=== PATIENT | female | born 1970 | race Caucasian/White ===

== ENCOUNTER 2016-06-02 11:52 | Emergency (ER) | payer MEDICAID ==
[2016-06-02 12:23] VITALS: TEMP 98.6
[2016-06-02 13:13] LABS: COLOR YELLOW; LEUKOCYTE ESTERASE,URINE NEGATIVE (NEGATIVE); NITRITE,URINE NEGATIVE (NEGATIVE); PH,URINE 6.5 (5.0-7.5)
[2016-06-02 13:31] LABS: % IMMATURE GRANULYOCYTES 0.3 % (0.0-1.1); ABSOLUTE IMMATURE GRANULOCYTES 0.03 10^3/uL (0.00-0.10); ADD DIFF? NO; ADD MORPH? NO; ADD SCAN? NO; ATYPICAL LYMPHOCYTE FLAG 0 (0-99); FRAGMENT RBC FLAG 0 (0-99); HEMATOCRIT 38.8 % (38.0-47.0); HEMOGLOBIN 13.5 g/dL (12.6-16.3); LEFT SHIFT FLG 0 (0-99); LIPEMIA HEMOLYSIS FLAG 90 (0-99); MEAN CELL HEMOGLOBIN 32.2 pg (27.9-34.1); MEAN CELL HEMOGLOBIN CONCENTR. 34.8 g/dL (32.4-36.7); MEAN CELL VOLUME 92.6 fL (81.5-99.8); MEAN PLATELET VOLUME 10.1 fL (8.7-11.7); PLATELET CLUMPS FLAG 0 (0-99); PLATELET COUNT 183 10^3/uL (150-400); RED BLOOD CELL COUNT 4.19 10^6/uL (4.18-5.33); RED CELL DISTRIBUTION WIDTH 12.5 % (11.5-15.2)
[2016-06-02 14:21] LABS: ALANINE AMINOTRANSFERASE 31 IU/L (9-52); ALBUMIN 3.3 g/dL (3.5-5.0); ALKALINE PHOSPHATASE 52 IU/L (38-126); ANION GAP 10 mEq/L (8-16); ASPARTATE AMINOTRANSFERASE 20 IU/L (14-46); BILIRUBIN,TOTAL 0.7 mg/dL (0.1-1.4); CALCIUM 8.9 mg/dL (8.5-10.4); CARBON DIOXIDE 25 mEq/l (22-31); CHLORIDE 104 mEq/L (97-110); CREATININE 0.8 mg/dL (0.6-1.0); GLOMERULAR FILTRATION RATE > 60; GLUCOSE 103 mg/dL (70-100); POTASSIUM 3.7 mEq/L (3.5-5.2); SODIUM 139 mEq/L (134-144); TOTAL PROTEIN 6.1 g/dL (6.3-8.2)
[2016-06-02] MEDS ORDERED: HYOSCYAMINE SULFATE 0.125 MG TAB PO ONE (14:40)
--- NOTE | 2016-06-02 14:44 | UCPHY ---
H & P Patient Type: Established Chief Complaint Nursing Narrative: woke up with LT abd pain - had loose BM and fever- thinks she ate brownie yesterday and is gluten intol. Also C/O Dizzyness x 1 wk Time Seen by Provider: 06/02/16 12:42 HPI/ROS: This patient complains of epigastric aching discomfort and cramps that extends over lower belly and increased when she moves. At times the crampy pain is been severe after 11/23. Currently it is moderate in intensity. Her symptoms started 2 days ago and persist. She also complains of intermittent vertigo over the past few days described as feeling of room spinning with head movement. The symptoms resolved when she holds still. She had a fever of 100.6 associated with the symptoms yesterday. She also reports decreased appetite. Finally, she reports increased urinary frequency. ROS: No high fevers or chills. No other constitutional symptoms. HEENT: No headache. No tinnitus No discharge from her ear. No ear pain. Neuro: No focal symptoms. Pulmonary: No coughing. Cardiovascular: No lightheadedness GI : No vomiting. No nausea. No diarrhea. She reports normal bowel movements. : Last menstrual period was normal timing. No vaginal discharge. 10 point ROS is otherwise negative. Source: Patient Exam Limitations: No limitations - Personal History LMP (Females 10-55): 15-21 Days Ago Current Tetanus Diphtheria and Acellular Pertussis (TDAP): Yes - Medical/Surgical History Hx Asthma: No Hx Chronic Respiratory Disease: No Hx Diabetes: No Hx Cardiac Disease: No Hx Renal Disease: No Hx Cirrhosis: No Hx Alcoholism: No Hx HIV/AIDS: No Hx Splenectomy or Spleen Trauma: No Other PMH: PMH- DEPRESSION/ Gluten intolerance - Family History Significant Family History: No pertinent family hx - Social History Smoking Status: Never smoked Alcohol Use: Occasionally Drug Use: None - Physical Exam Exam: Physical exam: Vital signs are normal General: Patient is in no acute distress. HEENT: Is no external evidence of trauma on exam. Eyes: Pupils are equal and reactive to light. Extraocular motions are intact. Optic fundi: Clear with no papilledema or hemorrhage. Nose atraumatic. Ears: Clear bilaterally with no hemotympanum. Oropharynx: No dental trauma or malocclusion. No intraoral lacerations. Neck: Trachea is midline with no stridor. The patient has no midline neck tenderness and retains a full range of motion without increase in pain. Lungs: Clear to auscultation bilaterally Cardiac: Regular rate and rhythm no murmur gallop or rub. Chest: Nontender. Abdomen: Normoactive to hyperactive bowel sounds, soft, mild epigastric tenderness and left lower quadrant tenderness. No guarding or rebound. Back: No CVA tenderness Neuro: GCS of 15. Cranial nerves II through XII intact. She does have increased vertigo with head movement. Cerebellar exam is normal as judged by symmetric rapid hand movements bilaterally. No pronator drift. No sensory or motor deficits are appreciated. Initial differential diagnosis: Benign positional vertigo, cystitis, , diverticulitis Constitutional: Initial Vital Signs Temperature (C) 37 C 06/02/16 12:18 Heart Rate 81 06/02/16 12:18 Respiratory Rate 20 06/02/16 12:18 Blood Pressure 132/84 H 06/02/16 12:18 O2 Sat (%) 96 06/02/16 12:18 O2 Delivery Mode Room Air Allergies/Adverse Reactions: acetaminophen [From Vicodin] Allergy (Verified 01/24/16 12:47) amitriptyline Allergy (Verified 01/24/16 12:47) hydrocodone bitartrate [From Vicodin] Allergy (Verified 01/24/16 12:47) sertraline Allergy (Verified 06/02/16 12:26) topiramate Allergy (Verified 06/02/16 12:27) dumoitine Allergy (Uncoded 06/02/16 12:26) Home Medications: Medication Instructions Recorded DULoxetine 01/24/16 Fluticasone Nasal [Flonase Nasal 2 sprays NASAL DAILY #1 mdi 06/02/16 [place] (RX)] HYOSCYAMINE SULFATE [LEVSIN-SL] 0.125 - 0.25 mg SL TID PRN #20 06/02/16 tab.subl Meclizine HCl [Meclizine HCl 25 mg 25 mg PO TID PRN #20 tab 06/02/16 (RX,OTC)] Medical Decision Making ED Course/Re-evaluation: Labs-urinalysis is normal, is negative, CBC, metabolic panel are normal Discussion: I suspect this patient is a food intolerance or other cause of dysmotility causing her abdominal cramping. She is given Levsin with improvement. I counseled regarding benign positional vertigo as well. - Data Points Laboratory Results: Laboratory Results 06/02/16 13:25 06/02/16 13:25 06/02/16 06/02/16 06/02/16 13:25 13:25 13:25 WBC 8.88 10^3/uL 10^3/uL (3.80-9.50) RBC 4.19 10^6/uL 10^6/uL (4.18-5.33) Hgb 13.5 g/dL g/dL (12.6-16.3) Hct 38.8 % % (38.0-47.0) MCV 92.6 fL fL (81.5-99.8) MCH 32.2 pg pg (27.9-34.1) MCHC 34.8 g/dL g/dL (32.4-36.7) RDW 12.5 % % (11.5-15.2) Plt Count 183 10^3/uL 10^3/uL (150-400) MPV 10.1 fL fL (8.7-11.7) Neut % (Auto) 79.6 % H % (39.3-74.2) Lymph % (Auto) 14.0 % L % (15.0-45.0) [place] % (Auto) 5.9 % % (4.5-13.0) Eos % (Auto) 0.0 % L % (0.6-7.6) Baso % (Auto) 0.2 % L % (0.3-1.7) Nucleat RBC Rel Count 0.0 % % (0.0-0.2) Absolute Neuts (auto) 7.07 10^3/uL H 10^3/uL (1.70-6.50) Absolute Lymphs (auto) 1.24 10^3/uL 10^3/uL (1.00-3.00) Absolute Monos (auto) 0.52 10^3/uL 10^3/uL (0.30-0.80) Absolute Eos (auto) 0.00 10^3/uL L 10^3/uL (0.03-0.40) Absolute Basos (auto) 0.02 10^3/uL 10^3/uL (0.02-0.10) Absolute Nucleated RBC 0.00 10^3/uL 10^3/uL (0-0.01) Immature Gran % 0.3 % % (0.0-1.1) Immature Gran # 0.03 10^3/uL 10^3/uL (0.00-0.10) Sodium 139 mEq/L mEq/L (134-144) Potassium 3.7 mEq/L mEq/L (3.5-5.2) Chloride 104 mEq/L mEq/L (97-110) Carbon Dioxide 25 mEq/l mEq/l (22-31) Anion Gap 10 mEq/L mEq/L (8-16) BUN 9 mg/dL mg/dL (7-23) Creatinine 0.8 mg/dL mg/dL (0.6-1.0) Estimated GFR > 60 Glucose 103 mg/dL H mg/dL (70-100) Calcium 8.9 mg/dL mg/dL (8.5-10.4) Total Bilirubin 0.7 mg/dL mg/dL (0.1-1.4) AST 20 IU/L IU/L (14-46) ALT 31 IU/L IU/L (9-52) Alkaline Phosphatase 52 IU/L IU/L (38-126) Total Protein 6.1 g/dL L g/dL (6.3-8.2) Albumin 3.3 g/dL L g/dL (3.5-5.0) Beta HCG, Qual NEGATIVE Urine Color Urine Appearance Urine pH Ur Specific [place] Urine Protein Urine Ketones Urine Blood Urine Nitrate Urine Bilirubin Urine Urobilinogen Ur Leukocyte Esterase Urine Glucose 06/02/16 13:05 WBC RBC Hgb Hct MCV MCH MCHC RDW Plt Count MPV Neut % (Auto) Lymph % (Auto) [place] % (Auto) Eos % (Auto) Baso % (Auto) Nucleat RBC Rel Count Absolute Neuts (auto) Absolute Lymphs (auto) Absolute Monos (auto) Absolute Eos (auto) Absolute Basos (auto) Absolute Nucleated RBC Immature Gran % Immature Gran # Sodium Potassium Chloride Carbon Dioxide Anion Gap BUN Creatinine Estimated GFR Glucose Calcium Total Bilirubin AST ALT Alkaline Phosphatase Total Protein Albumin Beta HCG, Qual Urine Color YELLOW Urine Appearance CLEAR Urine pH 6.5 (5.0-7.5) Ur Specific [place] 1.010 (1.002-1.030) Urine Protein NEGATIVE (NEGATIVE) Urine Ketones NEGATIVE (NEGATIVE) Urine Blood NEGATIVE (NEGATIVE) Urine Nitrate NEGATIVE (NEGATIVE) Urine Bilirubin NEGATIVE (NEGATIVE) Urine Urobilinogen 0.2 EU EU (0.2-1.0) Ur Leukocyte Esterase NEGATIVE (NEGATIVE) Urine Glucose NEGATIVE (NEGATIVE) Medications Given: Discontinued Medications Hyoscyamine Sulfate (Levsin, [place]-Sl) 0.25 mg PO EDNOW ONE Stop: 06/02/16 14:41 Last Admin: 06/02/16 15:00 Dose: 0.25 mg Departure - Departure Disposition: Home, Routine, Self-Care Clinical Impression: Abdominal cramping Benign positional vertigo Qualifiers: Laterality: unspecified laterality Qualified Code(s): H81.10 - Benign paroxysmal vertigo, unspecified ear Condition: Good Instructions: Acute Abdominal Pain (ED), Benign Paroxysmal Positional Vertigo ( ED) Additional Instructions: Diagnosis: 1. Generalized abdominal cramping 2. Benign positional vertigo Plan: Drink plenty fluids Take notice any foods that seem to be causing the symptoms Levsin for cramping if needed Meclizine for dizziness if needed Flonase steroid nasal spray Follow up with ENT physician if you're still having ongoing symptoms last beyond the next 3 days. Return for any significant worsening despite the treatment plan Referrals: NORMA SANON,Melani [Primary Care Provider] - As per Instructions Tammy Small MD [Medical Doctor] - As per Instructions Prescriptions: Fluticasone Nasal [Flonase Nasal [place] (RX)] 2 sprays NASAL DAILY #1 mdi HYOSCYAMINE SULFATE [LEVSIN-SL] 0.125 - 0.25 mg SL TID PRN #20 tab.subl PRN Reason: abd. cramping Meclizine HCl [Meclizine HCl 25 mg (RX,OTC)] 25 mg PO TID PRN #20 tab PRN Reason: vertigo - PQRS PQRS Measurement: NA
[2016-06-02 15:18] VITALS: BP 128/73; PULSE 73; RESP 16; O2SAT 97
== END 2016-06-02 15:17 | disposition home or self-care (01) ==
LOC: CED 11:52
DX: R10.84 Generalized abdominal pain (principal); H81.10 Benign paroxysmal vertigo, unspecified ear; R50.9 Fever, unspecified; R35.0 Frequency of micturition; R63.0 Anorexia
CPT/HCPCS: 80053-PO; 81003-PO; 84703-PO; 85025-PO; 99214-PO; G0463-PO

== ENCOUNTER → 2016-11-14 | Outpatient (CLI) | payer MEDICAID | LOC: FIMAGING 10:07 | PROVIDERS: ATTEND Physician Assistant Medical | DX: G43.109 Migraine with aura, not intractable, without status migrainosus (principal); R20.0 Anesthesia of skin; R29.898 Other symptoms and signs involving the musculoskeletal system ==